=== PATIENT | female | born 1960 | race Caucasian/White ===

== ENCOUNTER 2016-08-30 18:48 | Emergency (ER) | payer MEDICARE ==
[~2016-08-30 18:48] MED LIST: ABILIFY5 MG PO; ARTHROTEC 75 T1 EAC1 PO; ASPIRIN325 MG; CIPRO250 MG PO; CIPRO500 MG PO; CLEARLAX119 G1 PO; CLINDAMYCIN HC300 MG PO; CLONAZEPAM0.5 MG PO; CLONAZEPAM1 MG PO; CLONAZEPAM2 M1 PO; COLACE100 M1 PO; CYMBALTA; CYMBALTA20 MG; CYMBALTA30 MG PO; CYMBALTA60 MG PO; DILAUDID; FLEXERIL10 MG; FLEXERIL10 MG PO; HYDROCODON-ACE1 EA16 PO; IBUPROFEN800 MG; KADIAN100 MG PO; KEPPRA1000 M1 PO; KEPPRA500 MG PO; KLONOPIN0.5 MG; KLONOPIN0.5 MG PO; KLONOPIN1 MG PO; LESSINA; LIPITOR20 MG PO; LUNESTA3 MG; MELATONIN1 M2 PO; MOTRIN800 MG; MOTRIN800 MG PO; MS CONTIN30 MG PO; MS CONTIN60 MG PO; MULTIVITAMIN1 TAB PO; NORCO 10/325 TA1 TAB PO; NORCO 5/325 TAB1 TAB PO; OXYCONTIN10 M2 PO; PHENERGAN25 MG PO; PLAVIX75 MG; PROTONIX40 M1 PO; REMERON30 MG; SOMA350 MG; SOMA350 MG PO; TUMS; ZANAFLEX4 MG PO; ZELNORM; ZOFRAN4 M2 PO; ZOFRAN8 MG PO; [UNRECOGNIZED DRUG - CODE]; [UNRECOGNIZED DRUG - CODE] TP; [UNRECOGNIZED DRUG - OTHER]
[2016-08-30] MEDS ORDERED: ABILIFY (19:02)
[2016-08-30] MEDS ORDERED: KEPPRA500 M3 PO (19:02)
[2016-08-30] MEDS ORDERED: OXYCONTIN10 M2 PO (19:03)
[2016-08-30] MEDS ORDERED: ZYRTEC1010 PO (19:05)
[2016-08-30] MEDS ORDERED: PROAIR HFA8.5 GM (19:05)
[2016-08-30 19:57] LABS: BASO % 0.5 % (0-2); EOS % 4.2 % (0-7); EOSINOPHIL ABSOLUTE COUNT 0.3 tho/cmm (0.0-0.7); HCT-HEMATOCRIT 42.3 % (34.0-49.0); HGB-HEMOGLOBIN 14.3 gm/dl (12.0-15.5); IMMATURE GRANULOCYTES ABSOLUTE 0.01 tho/cmm (0-0.03); IMMATURE GRANULOCYTES PERCENT 0.1 % (0-0.3); LYMPH ABSOLUTE COUNT 3.3 tho/cmm (0.8-4.5); MCH (MEAN CORPUSCULAR HGB) 30.7 pg (28.0-32.0); MCHC MEAN CORPUSCULAR HGB CONC 33.8 % (32.0-36.0); MCV (MEAN CELL VOLUME) 90.8 fl (82.0-96.0); MEAN PLATELET VOLUME 10.7 cmc (9.4-12.4); MONO % 4.5 % (0-12); MONOCYTE ABSOLUTE COUNT 0.4 tho/cmm (0.0-1.2); NEUTROPHIL ABSOLUTE COUNT 3.8 tho/cmm (1.6-8.0); NEUTROPHIL-AUTOMATED 3.8 tho/cmm (1.6-8.0); NEUTROPHILS % 48.7 % (40-80); PLATELET COUNT 201 tho/cmm (150-450); RED BLOOD COUNT 4.66 mil/cmm (4.00-5.20); RED CELL DISTRIBUTION WIDTH 13.5 % (12.4-16.4); WHITE BLOOD COUNT 7.8 tho/cmm (4.0-10.0)
[2016-08-30 20:09] LABS: ANION GAP 9 mmol/L (0-20); BLOOD UREA NITROGEN 17 mg/dl (6-24); CALCIUM 9.6 mg/dl (8.5-10.5); CARBON DIOXIDE-VENOUS 32 mmol/L (22-32); CHLORIDE 102 mmol/l (96-110); CREATININE 0.91 mg/dl (0.50-1.10); GLUCOSE 86 mg/dL (70-110); SODIUM 139 mmol/L (135-145); eGFR VALUE FOR BLACK 82 mL/Min
[2016-08-30 20:10] LABS: POTASSIUM 4.3 mmol/L (3.7-5.1)
== END 2016-08-30 20:41 ==
LOC: EDMED 18:48
PROVIDERS: Nurse Practitioner Family
DX: K92.1 Melena (principal); R11.0 Nausea; Z88.0 Allergy status to penicillin; Z88.2 Allergy status to sulfonamides; F17.210 Nicotine dependence, cigarettes, uncomplicated